=== PATIENT | female | born 1955 | race Caucasian/White ===

== ENCOUNTER → 2019-08-27 | Outpatient (CLI) | payer MEDICARE, OTHER ==
--- NOTE | 2019-08-27 12:28 | RADIOLOGY REPORT (SQ) ---
EXAM DESCRIPTION: MRI LT LOWER EXTREMITY WITHOUT COMPLETED DATE/TIME: 08/27/2019 9:21 am REASON FOR STUDY: M25.572 PAIN IN LEFT ANKLE AND JOINTS OF LEFT FOOT M25.572 PAIN IN LEFT ANKLE AND JOINTS OF LEFT FOOT COMPARISON: None. TECHNIQUE: Left ankle images acquired and stored on PACS. Multiplanar images include fat sensitive s equences as T1, fluid sensitive sequences as FST2/STIR, cartilage sensitive sequences as FSPD, and gr adient echo sequences. LIMITATIONS: None. FINDINGS: BONE MARROW: There is marrow edema along the talus at the insertion of the intertarsal lig aments along the sinus tarsi. EFFUSIONS: There is fluid in the sinus tarsi. OSSEOUS ARTICULATIONS: Normal tibiotalar, talonavicular and calcaneocuboid joints. BM subtalar join t exhibits diffuse fluid throughout the sinus tarsi and increased signal of the intertarsal ligaments TALAR DOME AND TIBIAL PLAFOND: Normal cartilage. No osteochondral defect. ACHILLES TENDON: Intact without partial or full-thickness tear. No adjacent bursal fluid or edema. TIBIALIS ANTERIOR TENDON: Intact without edema at the 1st MT attachment. TIBIALIS POSTERIOR TENDON: Thickening and high signal distal to the medial malleolus, with edema at t he navicular attachment. Moderate tendon sheath fluid. FLEXOR HALLUCIS LONGUS AND FLEXOR DIGITORUM TENDONS: Normal morphology and no tendon sheath fluid. No edema of the os trigonum. PERONEUS LONGUS AND BREVIS TENDON: Normal morphology and no tendon sheath fluid. No subluxation. ATFL, CFL, PTFL: Intact. No thickening or signal alteration. No sammi-ligamentous fluid. DELTOID LIGAMENT: Visualized components intact. TARSAL TUNNEL: No masses. No muscle atrophy. SINUS TARSI: No fluid. No reactive marrow edema or erosions. PLANTAR FASCIA: Focal thickening of the plantar fascia is present from fibromatosis about 2 cm from i ts calcaneal attachment along the medial plantar fascia bundle. Focal thickening involves the 1.6 by 0.9 cm area on sagittal image 9. ADJACENT SOFT TISSUES: No masses. OTHER: No other significant finding. 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 Tendon sheath fluid is present more proximally. TECHNICAL DOCUMENTATION: JOB ID: [id number] [facility] [employer]- All Rights Reserved Reading location - IP/workstation name: [email or web address]
== END ==
LOC: RAD 08:15
PROVIDERS: ATTEND Podiatrist Foot Surgery
DX: M25.572 Pain in left ankle and joints of left foot (principal)